=== PATIENT | male | born 1995 | race Caucasian/White ===

== ENCOUNTER → 2017-11-15 | Outpatient (REF) | payer OTHER ==
[2017-11-15 13:40] LABS: ALKALINE PHOSPHATASE 109 U/L (45-117); ALT/SGPT 150 U/L (12-78); BILIRUBIN,TOTAL 0.4 MG/DL (0.2-1.0); BLOOD UREA NITROGEN 5 MG/DL (7-18); CALCIUM LEVEL 9.2 MG/DL (8.5-10.1); CARBON DIOXIDE LEVEL 30 MEQ/L (21-32); CHLORIDE LEVEL 108 MEQ/L (98-107); CREATININE FOR GFR 0.87 MG/DL (0.70-1.30); GLUCOSE, FASTING 99 MG/DL (70-100); HDL CHOLESTEROL 32 MG/DL (>40); POTASSIUM SERUM 4.3 MEQ/L (3.5-5.1); SODIUM LEVEL 144 MEQ/L (136-145)
[2017-11-15 14:10] LABS: AST/SGOT 87 U/L (7-37); CHOLESTEROL LEVEL 233 MG/DL (<200); CHOLESTEROL RISK RATIO 7.281 (<5); NON-HDL-C 201 MG/DL; TRIGLYCERIDES LEVEL 220 MG/DL (<150)
[2017-11-15 15:09] LABS: ANION GAP 6 MEQ/L (8-16)
[2017-11-15 15:10] LABS: ALBUMIN 4.3 GM/DL (3.2-5.2); TOTAL PROTEIN 7.6 GM/DL (6.4-8.2)
== END ==
LOC: M SFHCPLAZ 08:39
DX: R94.5 Abnormal results of liver function studies (principal); E78.1 Pure hyperglyceridemia
CPT/HCPCS: 36415

== ENCOUNTER → 2018-03-28 | Outpatient (REF) | payer OTHER ==
[2018-03-28 12:46] LABS: C REACTIVE PROTEIN QUANTITATIV 1.07 MG/DL (0.00-0.30); CHOLESTEROL LEVEL 228 MG/DL (<200); CHOLESTEROL RISK RATIO 6.514 (<5); CPK CREATINE PHOSPHOKINASE 82 U/L (39-308); FERRITIN 140 NG/ML (26-388); HDL CHOLESTEROL 35 MG/DL (>40); IRON (FE) 59 UG/DL (65-175); LDL CHOLESTEROL 124.8 MG/DL (<100); NON-HDL-C 193 MG/DL; PERCENT SATURATION 15.5 % (19.7-50.0); TOTAL IRON BINDING CAPACITY 381 UG/DL (250-450); TRIGLYCERIDES LEVEL 341 MG/DL (<150)
[2018-03-28 14:15] LABS: ESTIMATED AVERAGE GLUCOSE 128 MG/DL (60-110); HEMOGLOBIN A1c 6.1 %
[2018-03-31 08:42] LABS: OXYCODONE SCREEN Negative ng/mL (Cutoff:5)
[2018-04-03 08:37] LABS: FIBROSPECT1 SEE SEPARATE REPORT
[2018-04-04 15:06] LABS: INSULIN LEVEL 71.5 uIU/mL (2.6-24.9)
[2018-04-04 15:06] LABS: ANA (HEP2) Negative (.); ANTI-MITOCHONDRIAL ANTIBODY 1.9 Units (0.0-20.0)
== END ==
LOC: M SFHCPLAZ 08:36
DX: R94.5 Abnormal results of liver function studies (principal); E78.1 Pure hyperglyceridemia; F90.0 Attention-deficit hyperactivity disorder, predominantly inattentive type
CPT/HCPCS: 82550

== ENCOUNTER → 2018-04-16 | Outpatient (CLI) | payer OTHER | LOC: M RAD 08:17 | DX: K76.0 Fatty (change of) liver, not elsewhere classified (principal); R16.0 Hepatomegaly, not elsewhere classified; R94.5 Abnormal results of liver function studies | CPT/HCPCS: 76705 ==

== ENCOUNTER → 2018-06-05 | Outpatient (REF) | payer OTHER ==
[2018-06-05 15:50] LABS: ESTIMATED AVERAGE GLUCOSE 114 MG/DL (60-110); HEMOGLOBIN A1c 5.6 %
[2018-06-05 17:05] LABS: ALKALINE PHOSPHATASE 85 U/L (45-117); ALT/SGPT 120 U/L (12-78); ANION GAP 10 MEQ/L (8-16); AST/SGOT 55 U/L (7-37); BILIRUBIN,TOTAL 0.4 MG/DL (0.2-1.0); BLOOD UREA NITROGEN 6 MG/DL (7-18); CALCIUM LEVEL 9.7 MG/DL (8.5-10.1); CARBON DIOXIDE LEVEL 26 MEQ/L (21-32); CHLORIDE LEVEL 106 MEQ/L (98-107); CHOLESTEROL LEVEL 245 MG/DL (<200); CHOLESTEROL RISK RATIO 7.903 (<5); CREATININE FOR GFR 0.81 MG/DL (0.70-1.30); GLOMERULAR FILTRATION RATE > 60.0 (>60); GLUCOSE, FASTING 82 MG/DL (70-100); HDL CHOLESTEROL 31 MG/DL (>40); NON-HDL-C 214 MG/DL; POTASSIUM SERUM 4.2 MEQ/L (3.5-5.1); SODIUM LEVEL 142 MEQ/L (136-145); TRIGLYCERIDES LEVEL 275 MG/DL (<150)
[2018-06-05 17:06] LABS: ALBUMIN 4.4 GM/DL (3.2-5.2); ALBUMIN/GLOBULIN RATIO 1.38 (1.00-1.93); LDL CHOLESTEROL 159 MG/DL (<100); TOTAL PROTEIN 7.6 GM/DL (6.4-8.2)
== END ==
LOC: M SFHCPLAZ 10:30
DX: E78.00 Pure hypercholesterolemia, unspecified (principal); R73.01 Impaired fasting glucose